=== PATIENT | female | born 1970 | race African-American/Black ===

== ENCOUNTER 2017-01-26 11:09 | Emergency (ER) | payer SELFPAY ==
[~2017-01-26] VITALS: Ht 149.9 cm; Wt 76.4 kg
[~2017-01-26 11:09] MED LIST: PROP80CA2 PO
[2017-01-26] MEDS ORDERED: DIAZEPAM 5 MG TABLET PO ONE (12:00)
[2017-01-26] MEDS ORDERED: IBUPROFEN 800MG TABLET PO ONE (12:00)
[2017-01-26 14:00] VITALS: BP 151/89
== END 2017-01-26 14:15 | disposition home or self-care (01) ==
LOC: ER 12:01
DX: I50.9 Heart failure, unspecified (principal); I11.0 Hypertensive heart disease with heart failure; M54.2 Cervicalgia; Z87.891 Personal history of nicotine dependence
CPT/HCPCS: 72125; 81025; 99284; L0172

== ENCOUNTER 2018-09-29 21:36 | Inpatient (IN) | payer MEDICAID ==
[~2018-09-29] VITALS: Ht 149.9 cm; Wt 69.0 kg
[2018-09-29 22:50] LABS: EOSINOPHILS % 2.1 % (0.0-5.0); HEMATOCRIT. 31.7 % (36.0-48.0); HEMOGLOBIN. 10.6 g/dL (12.0-16.0); LYMPHOCYTES % 22.2 % (20.0-50.0); MEAN CORPUSCULAR HEMOGLOBIN 30.2 pg (28.0-32.0); MEAN CORPUSCULAR VOLUME 89.9 fL (81.0-99.0); MEAN PLATELET VOLUME 7.7 fl (7.4-10.4); MONOCYTES % 7.2 % (2.0-8.0); NEUTROPHILS % 67.5 % (40.0-76.0); PLATELET 323 x1000/uL (130-400); RED BLOOD CELL COUNT 3.52 mill/uL (4.2-5.4); RED CELL DISTRIBUTION WIDTH 13.5 % (11.6-14.6)
[2018-09-29 22:54] LABS: CHLORIDE 99 mEq/L (98-107)
[2018-09-30] MEDS ORDERED: HYDROCODONE/ACETAMINOPHEN 5/325MG TABLET PO ONE (00:15)
[2018-09-30] MEDS ORDERED: ACETAMINOPHEN 325MG TABLET PO PRN (02:15)
[2018-09-30] MEDS ORDERED: MAGNESIUM/ALUMINUM HYDROXIDE/SIMETHICONE 30ML UDC PO PRN (02:15)
[2018-09-30] MEDS ORDERED: ENOXAPARIN 40MG/0.4ML SYR SUBCUT SCH (02:15)
[2018-09-30] MEDS ORDERED: CLONIDINE 0.1MG TABLET PO PRN (02:15)
[2018-09-30] MEDS ORDERED: ONDANSETRON HCL 4MG/2ML INJ IV PRN (02:15)
[2018-09-30] MEDS ORDERED: IPRATROPIUM/ALBUTEROL 0.5-3(2.5)MG/3ML NEB INH PRN (02:15)
[2018-09-30] MEDS ORDERED: DOCUSATE SODIUM 100MG CAPSULE PO PRN (02:15)
[2018-09-30] MEDS ORDERED: GUAIFENESIN 200MG/10ML SUGAR FREE UDC PO PRN (02:15)
[2018-09-30] MEDS ORDERED: MORPHINE SULFATE 4 MG/ML CPJ (NOT FOR IM USE) IV PRN (02:15)
[2018-09-30] MEDS: ENOXAPARIN 80MG/0.8ML SYR SUBCUT SCH ×2 (06:15→18:00)
[2018-09-30 08:05] VITALS: BP 125/71
[2018-09-30] MEDS: AMLODIPINE 10MG TABLET PO SCH (08:54)
[2018-09-30] MEDS: ASPIRIN 81MG EC TABLET PO SCH (08:54)
[2018-09-30] MEDS: HYDROCODONE/ACETAMINOPHEN 5/325MG TABLET PO PRN ×2 (08:55→13:49)
[2018-09-30] MEDS ORDERED: ATEN1TAB42 MT (08:57)
[2018-09-30] MEDS ORDERED: AMLO5TAB88 MT (08:57)
[2018-09-30] MEDS ORDERED: POTASSIUM CHLORIDE 20MEQ TABLET SR PO NR (10:00)
[2018-09-30 10:02] LABS: CREATINE KINASE 49 IU/L (26-192)
[2018-09-30 10:03] LABS: CREATINE KINASE MB FRACTION < 1.0 ng/mL (0.5-3.6)
[2018-09-30 11:07] LABS: T4 FREE 2.38 ng/dL (0.76-1.46)
[2018-09-30] MEDS ORDERED: INFLUENZA VIRUS VACCINE(AFLURIA) 0.5ML SYR IM ONE (11:30)
[2018-09-30 12:00] VITALS: BP 139/66
[2018-09-30 12:25] LABS: HCG SCREEN NEGATIVE
[2018-09-30] MEDS ORDERED: IOHEXOL-350 100 ML BOTTLE ONE (12:41)
[2018-09-30 15:21] LABS: CREATINE KINASE 56 IU/L (26-192)
[2018-09-30 15:22] LABS: CREATINE KINASE MB FRACTION < 1.0 ng/mL (0.5-3.6)
[2018-09-30 16:00] VITALS: BP 133/65
[2018-09-30 20:00] VITALS: BP 128/48
[2018-10-01] VITALS: BP 142/72
[2018-10-01 04:00] VITALS: BP_SYST 120; BP_SYST 141; BP_DIAS 54; BP_DIAS 74
[2018-10-01] MEDS: ENOXAPARIN 80MG/0.8ML SYR SUBCUT SCH (05:26)
[2018-10-01 06:20] LABS: BASOPHILS % 0.7 % (0.0-2.0); EOSINOPHILS % 4.1 % (0.0-5.0); HEMATOCRIT. 32.3 % (36.0-48.0); HEMOGLOBIN. 10.8 g/dL (12.0-16.0); LYMPHOCYTES % 29.7 % (20.0-50.0); MEAN CORPUSCULAR HEMOGLOBIN 30.5 pg (28.0-32.0); MEAN PLATELET VOLUME 7.6 fl (7.4-10.4); MONOCYTES % 7.3 % (2.0-8.0); NEUTROPHILS % 58.2 % (40.0-76.0); PLATELET 280 x1000/uL (130-400); RED BLOOD CELL COUNT 3.55 mill/uL (4.2-5.4); RED CELL DISTRIBUTION WIDTH 12.9 % (11.6-14.6)
[2018-10-01 06:21] LABS: CHLORIDE 102 mEq/L (98-107)
[2018-10-01 06:28] LABS: LDL CHOLESTEROL 106 mg/dL (5-100)
[2018-10-01 06:29] LABS: HDL CHOLESTEROL 51 mg/dL (40-59)
[2018-10-01 08:00] VITALS: BP 145/66
[2018-10-01] MEDS: ASPIRIN 81MG EC TABLET PO SCH (09:34)
[2018-10-01] MEDS: AMLODIPINE 10MG TABLET PO SCH (09:34)
[2018-10-01] MEDS ORDERED: PNEUMOCOCCAL 23-VAL P-SAC VAC 0.5 ML IM ONE (11:00)
[2018-10-01 11:17] VITALS: BP 145/66
[2018-10-01 12:00] VITALS: BP 149/73
== END 2018-10-01 13:32 | disposition home or self-care (01) | DRG 197 ==
LOC: ER 22:07 → 8WST 23:51 → EDBEDREQ 23:57 → SUPCPDRO 09-30 02:04 → ENRESERV 09-30 07:15
PROVIDERS: ADMIT Hospitalist; ATTEND Hospitalist
DX: I82.431 Acute embolism and thrombosis of right popliteal vein (principal); I11.0 Hypertensive heart disease with heart failure; I50.9 Heart failure, unspecified; E78.5 Hyperlipidemia, unspecified; Z82.49 Family history of ischemic heart disease and other diseases of the circulatory system; Z87.891 Personal history of nicotine dependence
CPT/HCPCS: 36415; 71045; 71275; 80061; 82550; 82553; 83036; 83880; 84439; 84443; 84484; 84703; 85379; 90732; 93005; 93306; 93970; 96374; 99285; J1650; J2270; Q9967